=== PATIENT | female | born 1995 ===

== ENCOUNTER 2017-11-20 18:20 | Emergency (ER) | payer BC ==
[2017-11-20 20:14] VITALS: BP 100/68
--- NOTE | 2017-11-20 21:39 | UC ---
Respiratory Complaint HPI - HPI Summary HPI Summary: 22 year old female with respiratory concern. ONSET TWO DAYS AGO WITH COUGH, PRODUCTIVE. HEADACHE, CHILLS, FEVER. BODY ACHES AND RUNNY NOSE. NO SORE THROAT ON N/V. She has history of ENT concerns, goes to ENT in [place], has had sinus infection 1 mo ago. Had Tonsills removed 09/2017. Concerned for flu but also concerned about sinuses [ End ] - History of Current Complaint Chief Complaint: UCRespiratory Stated Complaint: COUGH,FEVER,CHILLS,BODY ACHES Time Seen by Provider: 11/20/17 21:14 Hx Obtained From: Patient Hx Last Menstrual Period: 11/06/17 Onset/Duration: Gradual Onset Timing: Constant Pain Intensity: 6 Character: Cough: Nonproductive - Allergies/Home Medications Allergies/Adverse Reactions: Allergies Allergy/AdvReac Type Severity Reaction Status Date / Time No Known Allergies Allergy Verified 11/20/17 20:07 Home Medications: Home Medications Ibuprofen TAB* [Advil TAB*] 200 mg PO Q6H PRN 11/20/17 [History Confirmed ] Norgestimate-Ethinyl Estradiol [Sprintec 28 Day Tablet] 1 each PO DAILY [History Confirmed 11/20/17] PMH/Surg Hx/FS Hx/Imm Hx Previously Healthy: Yes - Surgical History Surgical History: Yes Surgery Procedure, Year, and Place: TONSILLECTOMY 09/21 - Family History Known Family History: Positive: None - Social History Occupation: Student Alcohol Use: None Substance Use Type: None Smoking Status (MU): Never Smoked Tobacco Review of Systems Constitutional: Fever, Chills, Fatigue ENT: Sore Throat, Nasal Discharge, Sinus Congestion, Sinus Pain/Tenderness Respiratory: Cough Is Patient Immunocompromised?: No All Other Systems Reviewed And Are Negative: Yes Physical Exam Triage Information Reviewed: Yes Appearance: Well-Appearing, No Pain Distress, Well-Nourished Vital Signs: Initial Vital Signs Temp 97.6 F 11/20/17 20:08 Pulse 68 11/20/17 20:08 Resp 16 11/20/17 20:08 BP 100/68 11/20/17 20:08 Pulse Ox 100 11/20/17 20:08 Eye Exam: Normal ENT Exam: Normal ENT: Positive: Nasal congestion, Nasal drainage, TM dull, Sinus tenderness Dental Exam: Normal Neck exam: Normal Neck: Positive: 1 Respiratory Exam: Normal Cardiovascular Exam: Normal Musculoskeletal Exam: Normal Neurological Exam: Normal Psychological Exam: Normal Skin Exam: Normal UC Diagnostic Evaluation - Laboratory O2 Sat by Pulse Oximetry: 100 Respiratory Course/Dx - Course Course Of Treatment: Neg flu. She has recurrent sinus infections == it appears viral at this time -- i advise conservative treatment at this time and if in 1 week her sinus symptoms still present and worsened then at that time can start antibiotics - Differential Dx/Diagnosis Differential Diagnosis/HQI/PQRI: Bronchitis, Influenza, Laryngitis, Sinusitis Provider Diagnoses: 1) Flu like illness. 2) Viral sinusitis Discharge - Discharge Plan Condition: Good Disposition: HOME Referrals: No Primary Care Phys,NOPCP [Primary Care Provider] - 4 Days
== END 2017-11-20 22:00 | disposition home or self-care (01) ==
LOC: UCCORT 18:20
DX: R05 Cough (principal); R51 Headache; F50.9 Eating disorder, unspecified; R52 Pain, unspecified; R09.89 Other specified symptoms and signs involving the circulatory and respiratory systems; J32.9 Chronic sinusitis, unspecified; B97.89 Other viral agents as the cause of diseases classified elsewhere
CPT/HCPCS: 87502; 99211; G0463